=== PATIENT | male | born 1975 | race Caucasian/White ===

== ENCOUNTER → 2017-06-26 16:38 | Outpatient (CLI) | payer BC, SELFPAY ==
[2017-06-26 17:49] LABS: Hematocrit 45.1 % (40-54); Hemoglobin 15.9 g/dl (13.0-16.5); White Blood Count 8.2 K/mm3 (4.4-11.0)
[2017-06-26 17:50] LABS: Basophil# 0.11 X10^3/uL; Basophil% 1.3 % (0-1); Eosinophil# 0.42 X10^3/uL; Eosinophils% 5.1 % (0-5); Lymphocyte # 3.31 X10^3/ul (4.0); Lymphocyte % 40.6 % (19-41); Mean Corp Hgb Conc 35.3 g/gl (32-36); Mean Corpuscular Hgb 32.4 pg (27.0-32.0); Monocyte# 0.54 X10^3/uL; Monocyte% 6.6 % (0-10); Neutrophil # 3.77 X10^3/uL (2.7-7.7); Neutrophil % 46.3 % (47-70); Platelet Count 219 K/mm3 (150-450); RBC Distribution Width CV 11.9 % (11.6-14.6); RBC Distribution Width SD 39.8 fl (35.1-43.9)
[2017-06-26 17:51] LABS: Absolute Lymphocyte Count 3.33 X10^3/ul (0.83-4.51); Absolute Neutrophil Count 3.8 X10^3/uL (2.0-7.7); POSITIVE COUNT NO; POSITIVE DIFFERENTIAL NO; POSITIVE MORPHOLOGY NO
[2017-06-26 18:06] LABS: ALB/GLOB Ratio 1.2 RATIO (0.9-2.4); AST(SGOT) 21 U/L (15-37); Alanine Aminotransfer ALT/SGPT 37 U/L (16-61); Albumin, Serum 4.1 g/dL (3.2-5.0); Alkaline Phosphatase 81 U/L (45-117); Anion Gap 7 (5-15); BUN 20 mg/dL (7-18); BUN/Creat Ratio 18.7 RATIO (10-20); Calcium,Total 8.8 mg/dL (8.5-10.1); Chloride 107 mmol/L (98-107); Creatinine, Serum 1.07 mg/dL (0.70-1.30); EST Glomerular Filtration Rate 82 mL/min (>60); Est Glom Filt Rate - Afr Amer 99 mL/min (>60); Globulin 3.4 g/dL (2.2-4.2); Glucose 87 mg/dL (74-106); Potassium 3.8 mmol/L (3.5-5.1); Protein, Total 7.5 g/dL (6.4-8.2); Sodium Level 141 mmol/L (136-145); Thyroid Stim Hormone (TSH) 2.36 uIU/mL (0.358-3.74); Uric Acid 5.8 mg/dL (3.5-7.2)
== END ==
PROVIDERS: Visit Provider Family Medicine Geriatric Medicine
DX: R53.83 Other fatigue (principal); M10.9 Gout, unspecified
CPT/HCPCS: 36415; 80053; 84443; 84550; 85025

== ENCOUNTER → 2017-07-30 17:44 | Outpatient (CLI) | payer BC, SELFPAY ==
--- NOTE | 2017-07-30 17:51 | CT_ITS ---
STUDY: CT ABDOMEN AND PELVIS WITH AND WITHOUT CONTRAST REASON FOR EXAM: Male, 41 years old. Hematuria. Passing clots. RADIATION DOSAGE (If Supplied By Facility): CTDIvol = ( 19.34 ) mGy, DLP = ( 2210.94 ) mGycm TECHNIQUE: Transaxial images were obtained from the dome of the diaphragm to the symphysis pubis without oral contrast. 100ml ml of Isovue 300 contrast was administered. Sagittal and coronal images were reconstructed. Individualized dose optimization techniques were used for this CT. COMPARISON: None. FINDINGS: The visualized lung bases are unremarkable. The visualized portions of the heart are within normal limits. Normal liver. Normal gallbladder and extrahepatic biliary system. Normal spleen. Normal pancreas. Normal bilateral adrenal glands. Normal right kidney. Normal left kidney. Normal visualized stomach. Normal small intestine. Normal colon. There is non-visualization of the appendix. There is no visible evidence for appendicitis. Normal abdominal aorta. Normal inferior vena cava. Normal retroperitoneum. Normal urinary bladder. Normal abdominal wall. Normal osseous structures. CT/CT Abd/Pelvis W/WO Contrast IMPRESSION: Normal unenhanced and enhanced CT of the abdomen and pelvis. No demonstrated urinary calculi or hydronephrosis. Electronically Signed: Chong Dunn MD at 7:08 EDT , Service support ,
== END ==
PROVIDERS: Family Provider Family Medicine Geriatric Medicine; PCP Family Medicine Geriatric Medicine; Visit Provider Nurse Practitioner Adult Health
DX: R31.9 Hematuria, unspecified (principal)
CPT/HCPCS: 74178; Q9967

== ENCOUNTER → 2018-04-07 08:23 | Outpatient (CLI) | payer BC, SELFPAY ==
--- NOTE | 2018-04-07 08:26 | RAD_ITS ---
STUDY: X-RAY - ESOPHAGUS (BARIUM SWALLOW) WITH FLUOROSCOPY REASON FOR EXAM: Male, 42 years old. Dysphasia. TECHNIQUE: 15 view(s) of the esophagus were obtained following swallowing of barium. FLUOROSCOPY TIME (if supplied): (0:23) minutes/seconds COMPARISON: None. FINDINGS: There is no demonstrated esophageal foreign body. There is no demonstrated stricture or mucosal abnormality. Normal gastroesophageal junction, without a demonstrated hiatal hernia. The patient ingested a 12 mm tablet of barium without any difficulty. Normal visualized aortic arch and descending thoracic aorta. Normal visualized pulmonary parenchyma. Normal visualized osseous structures of the thorax. RAD/Esophagus Only IMPRESSION: Normal plain film x-ray examination (barium swallow) of the esophagus. Electronically Signed: Diony Vieira, at 8:35 EST , Service support ,
== END ==
PROVIDERS: Family Provider Family Medicine Geriatric Medicine; PCP Family Medicine Geriatric Medicine; Referring Provider Internal Medicine Gastroenterology; Visit Provider Internal Medicine Gastroenterology
DX: R13.10 Dysphagia, unspecified (principal)
CPT/HCPCS: 74220

== ENCOUNTER 2023-09-07 20:04 | Emergency (ER) | payer OTHER, SELFPAY ==
[2023-09-07 20:05] VITALS: BP 138/93; PULSE 103; RESP 15; TEMP 36.5; O2SAT 95; BMI 34.5
--- NOTE | 2023-09-07 20:56 | EDS_ITS ---
HPI History of Present Illness Chief Complaint: Edema Informant: patient Narrative Narrative: 47-year-old healthy male spontaneous onset pain, swelling, redness left lower extremity. Started at a red spot that started spontaneously medial proximal left calf, and he has had spread down to his ankle and up into the distal thigh medially. No fevers or chills. No recent long travel or immobilization, hospitalization, surgery, or injury to the leg. No chest pain, shortness of breath, palpitations, unexplained syncope, or history of DVT or PE in the past, or varicose veins that he knows of. He has never had this that he knows of. No recent minor skin injuries in this region. [facility] Medical History Hearing loss, left Hearing loss, right Allergy/AdvReac Type Severity Reaction Status Date / Time No Known Allergies Allergy Verified 09/07/23 20:07 Family History no significant family his Surgical History no surgical history Social History Smoking Status: Current every day smoker tobacco type: cigarettes ROS ROS ED Constitutional Constitutional ED: Denies chills or fever(s) Musculoskeletal Musculoskeletal: Reports extremity pain; Denies neck pain Integumentary Reports rash; Denies Abrasions or wounds Neurologic Neurologic: Denies paresthesias or weakness EXAM Physical Exam Const Vital Signs: 09/07/23 20:05 Temperature 97.7 F L Temperature Source Temporal Pulse Rate 103 H Respiratory Rate 15 Blood Pressure 138/93 H Blood Pressure Mean 108 Pulse Ox 95 Oxygen Delivery Method Room Air Positive well nourished and well developed General Appearance ED: well developed and NAD Neck full ROM and supple Back/Spine normal ROM and normal to inspection Extremity full ROM Extremity Narrative: Left lower extremity medial calf is sore and erythematous, it goes up to the distal thigh and down to the ankle and is on the medial aspect of the lower leg, there is no effusion, does not progress around to the other side or posterior aspect much, and there is no induration. Some of it is slightly raised but no definite palpable cords. No inguinal lymphadenopathy. All compartments soft and nondistended. Neurovascular intact distally. Neuro oriented x3, no focal motor deficits and no sensory deficits noted Sensorium / Orientation: alert Psych mental status grossly normal and thought process normal Skin no wounds Skin Narrative: See above, redness to the medial aspect of the left lower leg. No rashes elsewhere. No nidus for infection or abscess. MDM MDM MDM Narrative Medical decision making narrative: Patient is here on Saturday evening when venous duplex ultrasound is not available at this hospital. My suspicion is that he has superficial venous t hrombosis given the appearance and my exam. In order to evaluate for this and rule out DVT, setting him up for an outpatient scan to be obtained in the morning. In the meantime he is given 1 mg/kg of enoxaparin injection, that we will get him to about 9 AM which should be enough time to get the study. In the meantime warm compresses advised and given a doctor to follow-up afterwards. He is comfortable with that plan. History & Record Review Discussion w/independent historian: Patient and Significant other Discharge Plan Triage Chief Complaint: Edema ED Provider: Vishal Bee Dx/Rx/DC Orders Clinical Impression: Thrombophlebitis of left lower extremity Instructions: ED Deep Vein Thrombosis (DVT), ED Thrombophlebitis, Superficial Other Ambulatory Orders: Venous Duplex US, Unilateral (Stat) Facility: [facility] - Location: [facility] Ordered By: Dr. Vishal Bee Primary Care Provider: Care Physician,No Primary Referrals: Claudia Gipson MD [Med Staff - Structural Biologist] - 1 Week if not improving (for primary care if you do not already have a doctor) Print Language: Slovenian Disposition Disposition: Home, Self Care
[2023-09-07] MEDS: Enoxaparin 120 MG/0.8 ML Syringe SC (21:06)
[2023-09-07 21:08] VITALS: BP 132/81; PULSE 77; RESP 18; TEMP 36.6; O2SAT 99
== END 2023-09-07 21:10 | disposition home or self-care (01) ==
PROVIDERS: Emergency Provider Emergency Medicine; Visit Provider Emergency Medicine
DX: I80.3 Phlebitis and thrombophlebitis of lower extremities, unspecified (principal); F17.210 Nicotine dependence, cigarettes, uncomplicated
CPT/HCPCS: 96372; 99282

== ENCOUNTER → 2023-09-08 | Outpatient (CLI) | payer OTHER, SELFPAY ==
--- NOTE | 2023-09-08 10:28 | VDLE_ITS ---
Reason For Study: Left leg pain Procedure LEFT This is a venous duplex using B-mode, color CFV is compressible, spontaneous, phasic, flow and spectral Doppler. competent, and demonstrates normal Exam performed in department. augmentation. A preliminary report was called and/or faxed FV is compressible, spontaneous, phasic, to Dr. Lake, patient seen as next day ED. competent and demonstrates normal Patient given instructions for treatment of augmentation. SVT from Dr. Lake, instructed to follow up POP V is compressible, spontaneous, phasic, with a provider. competent and demonstrates normal augmentation. T/P Trunk is compressible. PTV is compressible. LT PerV is compressible. Superficial vein thrombosis is noted in the left GSV knee-ankle. It is NONCOMPRESSIBLE. Thrombus filled varicoseveins noted in the left mid calf. VL/Venous Duplex US, Unilateral Interpretation Summary There is no evidence of left lower extremity deep vein thrombosis. Superficial thrombophlebitis left great saphenous vein from the knee to the ankle with involved varicose veins in the left mid calf. Ordering Physician: Vishal Bee Referring Physician: [facility] Performed By: Joycelyn Rodriguez RVT
== END | disposition home or self-care (01) ==
PROVIDERS: Visit Provider Emergency Medicine
DX: M79.605 Pain in left leg (principal)
CPT/HCPCS: 93971